=== PATIENT | male | born 1955 | race Caucasian/White ===

== ENCOUNTER 2024-10-11 06:56 | Day surgery (SDC) | payer OTHER ==
[2024-10-07 12:27] VITALS: BMI 21.4
[2024-10-11] MEDS ORDERED: HEPARIN NA (PORCINE) 5,000 UNITS/ML 1ML VIAL ONE (12:06)
[2024-10-11] MEDS ORDERED: LIDOCAINE HCL 1%, 10 MG/ML (20ML VIAL) ONE (12:06)
[2024-10-11] MEDS ORDERED: VERAPAMIL HCL 5 MG/2 ML VIAL IVPUSH ONE (12:33)
[2024-10-11] MEDS ORDERED: MIDAZOLAM HCL 2 MG/2 ML SINGLE DOSE VIAL ONE (12:35)
[2024-10-11] MEDS ORDERED: LIDOCAINE HCL/PF 2% SDV 5ML VIAL ONE (12:35)
[2024-10-11] MEDS ORDERED: NITROGLYCERIN 50 MG/10 ML VIAL IVPB ONE (12:35)
[2024-10-11] MEDS ORDERED: PROPOFOL 40 ML ONE (13:03)
[2024-10-11] MEDS ORDERED: PROMETHAZINE HCL 25 MG/1 ML VIAL IVPB PRN (14:28)
[2024-10-11] MEDS ORDERED: ONDANSETRON 4 MG/2 ML VIAL IVPUSH PRN (14:28)
[2024-10-11] MEDS ORDERED: ACETAMINOPHEN 325 MG TABLET (FP) PO PRN (14:47)
[2024-10-11] MEDS: LACTATED RINGERS SOLUTION 1,000 ML IV SCH (15:28)
[2024-10-11] MEDS: ATORVASTATIN CA 40 MG TABLET (FP) PO SCH (21:30)
[2024-10-11] MEDS: SACUBITRIL/VALSARTAN 24 MG-26 MG TABLET PO SCH (21:30)
[2024-10-11] MEDS: CARVEDILOL 6.25 MG TABLET (FP) PO SCH (21:30)
[2024-10-12] MEDS: EMPAGLIFLOZIN (JARDIANCE) 10 MG TABLET PO SCH (06:40)
[2024-10-12 11:53] VITALS: BP 114/81; PULSE 69; RESP 17; TEMP 97.7
== END 2024-10-12 14:52 | disposition home or self-care (01) ==
LOC: JASUSAT 06:56 → JASU-SURG 06:56 → J5S 18:25 → JASUSAT 10-12 14:52
PROVIDERS: ATTEND Surgery
PROC: 027X3ZZ Dilation of Thoracic Aorta, Ascending/Arch, Percutaneous Approach (ICD-10-PCS; principal; 2024-10-11 13:00)
DX: I72.8 Aneurysm of other specified arteries (principal)
CPT/HCPCS: 76000-TC-FY; 82962; 94760; C1769; J1644